=== PATIENT | male | born 1970 | race Caucasian/White ===

== ENCOUNTER 2018-09-18 16:03 | Inpatient (IN) | payer BC ==
[2018-09-18 17:29] VITALS: BMI 26.1
--- NOTE | 2018-09-18 18:10 | HP ---
CIWA Score Nausea/Vomitin-No Nausea/No Vomiting Muscle Tremors: 1-None Visible, but [place] Anxiety: 4-Mod. Anxious/Guarded Agitation: 4-Moderately Restless Paroxysmal Sweats: No Perspiration Orientation: 0-Oriented Tacttile Disturbances: 0-None Auditory Disturbances: 0-None Visual Disturbances: 0-None Headache: 0-None Present CIWA-Ar Total Score: 9 - Admission Criteria [facility]ASAS Guidelines: Admission for Medically Managed Detox: Requires at least one of the followin. CIWA greater than 12 2. Seizures within the past 24 hours 3. Delirium tremens within the past 24 hours 4. Hallucinations within the past 24 hours 5. Acute intervention needed for co occurring medical disorder 6. Acute intervention needed for co occurring psychiatric disorder 7. Severe withdrawal that cannot be handled at a lower level of care (continued vomiting, continued diarrhea, abnormal vital signs) requiring intravenous medication and/or fluids 8. Admission ROS [facility] Chief Complaint: SEEKING DETOX FOR C/O WORSENING WITHDRAWAL SX'S./ ALCOHOL Allergies/Adverse Reactions: Allergies Allergy/AdvReac Type Severity Reaction Status Date / Time No Known Allergies Allergy Verified 09/18/18 18:10 History of Present Illness: 47 Y.O. MALE WITH HX/O ALCOHOLISM HERE FOR DETOX. CLIENT WAS REFERRED BY A FRIEND. PRESENTS WITH C/O WITHDRAWAL SX'S, CIWA 6. B/P 157/105, HR 75. CLIENT DENIES HX/O HTN. HE ALSO REPORTS THIS IS HIS FIRST TIME IN DRUG TXMENT. HE REPORTS THE LONGEST HE CAN GO W/O ALCOHOL IS ABOUT 12 HOURS. HE WAKES UP NEEDING A DRINK DUE TO TREMORS AND SOME WITHDRAWAL SX'S. LONGEST CLEAN TIME 5 YEARS DENIES ANY SIGNIFICANT PERIOD OF CLEAN TIME IN THE PAST 3 YEARS. DENIES HX/O SEIZURES, AVH, SI/HI. PMHX- HX/O TB W/ TXMENT PSYCH- DENIES MEDS- DENIES Exam Limitations: Language Barrier (YAKUT SPEAKING BUT CAN MAKE NEEDS KNOWN IN [place]) - Ebola screening Have you traveled outside of the country in the last 21 days: No Have you had contact with anyone from an Ebola affected area: No Have you been sick,other than usual withdrawal symptoms: No Do you have a fever: No - Review of Systems Constitutional: Loss of Appetite EENT: reports: No Symptoms Reported Respiratory: reports: No Symptoms reported Cardiac: reports: No Symptoms Reported GI: reports: Diarrhea, Poor Appetite : reports: No Symptoms Reported Musculoskeletal: reports: No Symptoms Reported Integumentary: reports: No Symptoms Reported Neuro: reports: Tremors Endocrine: reports: No Symptoms Reported Hematology: reports: No Symptoms Reported Psychiatric: reports: Anxious Other Systems: Reviewed and Negative Patient History - Patient Medical History Hx Anemia: No Hx Asthma: No Hx Chronic Obstructive Pulmonary Disease (COPD): No Hx Cancer: No Hx Cardiac Disorders: No Hx Congestive Heart Failure: No Hx Hypertension: No Hx Hypercholesterolemia: No Hx Pacemaker: No HX Cerebrovascular Accident: No Hx Seizures: No Hx Dementia: No Hx Diabetes: No Hx Gastrointestinal Disorders: No Hx Liver Disease: No Hx Genitourinary Disorders: No Hx Sexually Transmitted Disorders: No Hx Renal Disease (ESRD): No Hx Thyroid Disease: No Hx Human Immunodeficiency Virus (HIV): No Hx Hepatitis C: No Hx Depression: No Hx Suicide Attempt: No Hx Bipolar Disorder: No Hx Schizophrenia: No Other Medical History: HX/O TB - Patient Surgical History Past Surgical History: Yes Hx Orthopedic Surgery: Yes (R ARM FX REPAIR WITH HARDWARE) Anesthesia Reaction: No - PPD History Previous Implant?: Yes Documented Results: Positive w/o proof Implanted On Prior [facility] Admission?: No PPD to be Administered?: No - Smoking Cessation Smoking history: Never smoked Initiated information on smoking cessation: No - Substance & Tx. History Hx Alcohol Use: Yes Hx Substance Use: Yes Substance Use Type: Alcohol Hx Substance Use Treatment: No - Substances Abused BEER Route: Oral Frequency: Daily Amount used: 5-24 OZ Age of first use: 15 Date of Last Use: 09/17/18 Family Disease History - Family Disease History Family Disease History: Heart Disease: Father (ALCOHOLISM), Other: Father Admission Physical Exam [facility] - Vital Signs Vital Signs: Vital Signs - 24 hr 09/18/18 17:27 Temperature 96.7 F L Pulse Rate 72 Respiratory 18 Rate Blood Pressure 157/105 H - Physical General Appearance: Yes: Tremorous (FELT), Anxious HEENTM: Yes: EOMI, Normocephalic, Normal Voice, THADDEUS, Pharynx Normal Respiratory: Yes: Chest Non-Tender, Lungs Clear, Normal Breath Sounds, No Respiratory Distress, No Accessory Muscle Use Neck: Yes: No masses,lesions,Nodules, Supple, Trachea in good position Breast: Yes: Breast Exam Deferred Cardiology: Yes: Regular Rhythm, Regular Rate, S1, S2 Abdominal: Yes: Non Tender, Soft, Increased Bowel Sounds Genitourinary: Yes: Within Normal Limits (NO C/O) Back: Yes: Normal Inspection Musculoskeletal: Yes: full range of Motion, Gait Steady Extremities: Yes: Normal Range of Motion, Non-Tender, Tremors (FELT) Neurological: Yes: Fully Oriented, Alert, Motor Strength 5/5 Integumentary: Yes: Dry, Warm Lymphatic: Yes: Within Normal Limits - Diagnostic (1) Alcohol dependence with uncomplicated withdrawal Current Visit: Yes Status: Acute (2) History of positive PPD Current Visit: Yes Status: Chronic (3) At risk for dehydration due to poor fluid intake Current Visit: Yes Status: Acute Cleared for Admission [facility] - Detox or Rehab [facility] Level of Care: Medically Managed Detox Regimen/Protocol: Librium Claeared for Rehab Admission: No [facility] Breath Alcohol Content Breath Alcohol Content: 0 Urine Drug Screen - Results Drug Screen Negative: Yes
[2018-09-18] MEDS ORDERED: P-EPHED 60MG/TRIPROLIDI 2.5MG TABLET PO PRN (18:23)
[2018-09-18] MEDS ORDERED: LOPERAMIDE HCL 2 MG CAPSULE PO PRN (18:23)
[2018-09-18] MEDS ORDERED: hydrOXYzine PAMOATE 50 MG CAPSULE (FP) PO PRN (18:23)
[2018-09-18] MEDS ORDERED: MAG HYDROX/AL HYDROX/SIMETH 30 ML UNIT-DOSE CUP PO PRN (18:23)
[2018-09-18] MEDS ORDERED: chlordiazePOXIDE HCL 25 MG CAPSULE PO PRN (18:23)
[2018-09-18] MEDS ORDERED: MENTHOL/PHENOL 1 EACH UD MM PRN (18:23)
[2018-09-18] MEDS ORDERED: MAGNESIUM CITRATE 300 ML BOTTLE PO PRN (18:23)
[2018-09-18] MEDS ORDERED: guaiFENesin/D-METHORPHAN HB 10 ML UNIT-DOSE CUPS PO PRN (18:23)
[2018-09-18] MEDS ORDERED: MAGNESIUM HYDROX 2400MG/30ML ORAL SUSPENSION 30 ML CUP PO PRN (18:23)
[2018-09-18] MEDS ORDERED: IBUPROFEN 400 MG TABLET (FP) PO PRN (18:23)
[2018-09-18] MEDS ORDERED: ACETAMINOPHEN 325 MG TABLET (FP) PO PRN (18:23)
[2018-09-18] MEDS: THIAMINE HCL 100 MG TABLET (FP) PO SCH (21:34)
[2018-09-18] MEDS: chlordiazePOXIDE HCL 25 MG CAPSULE PO SCH (22:20)
[2018-09-18 23:19] LABS: URINE APPEARANCE CLEAR; URINE BILIRUBIN NEGATIVE (<2.0 mg/dL); URINE COLOR LTYELLOW; URINE GLUCOSE (UA) NEGATIVE (NEGATIVE); URINE KETONE NEGATIVE (NEGATIVE); URINE LEUK ESTERASE NEGATIVE (NEGATIVE); URINE NITRITE NEGATIVE (NEGATIVE); URINE PROTEIN NEGATIVE (NEGATIVE); URINE UROBILINOGEN NEGATIVE mg/dL (0.2-1.0)
[2018-09-19] MEDS: chlordiazePOXIDE HCL 25 MG CAPSULE PO SCH ×4 (05:32→22:05)
[2018-09-19] MEDS: PRENATAL VITAMINS W/ FOLIC ACID TABLET (FP) PO SCH (10:21)
[2018-09-19 10:56] LABS: ALBUMIN 3.2 g/dl (3.4-5.0); ALK PHOS 50 U/L (45-117); ANION GAP 7 MMOL/L (8-16); BILIRUBIN,TOTAL 0.6 mg/dL (0.2-1); BLOOD UREA NITROGEN 13 mg/dL (7-18); CALCIUM 8.1 mg/dL (8.5-10.1); CHLORIDE 105 mmol/L (98-107); CO2 27 mmol/L (21-32); CREATININE 0.8 mg/dL (0.55-1.3); GLUCOSE,RANDOM 108 mg/dL (74-106); POTASSIUM 3.9 mmol/L (3.5-5.1); SGOT/AST 22 U/L (15-37); SGPT/ALT 33 U/L (13-61); SODIUM 139 mmol/L (136-145); TOT PROT 6.6 g/dl (6.4-8.2)
[2018-09-19 10:59] LABS: HEMOGLOBIN 13.4 GM/dL (11.7-16.9); MCH 30.7 pg (25.7-33.7); MCHC 32.8 g/dl (32.0-35.9); MEAN CELL VOLUME 93.8 fl (80-96); MEAN PLT VOLUME 8.1 fl (7.5-11.1); PLATELET COUNT 253 K/MM3 (134-434); RBC 4.37 M/mm3 (4.00-5.60); RDW 13.5 % (11.9-15.9); WHITE BLOOD COUNT 5.2 K/mm3 (4.0-10.0)
--- NOTE | 2018-09-19 11:40 | PN ---
S CIWA - CIWA Score Nausea/Vomitin-No Nausea/No Vomiting Muscle Tremors: 4-Moderate,w/Arms Extend Anxiety: 4-Mod. Anxious/Guarded Agitation: 4-Moderately Restless Paroxysmal Sweats: 1-Minimal Palms Moist Orientation: 0-Oriented Tacttile Disturbances: 0-None Auditory Disturbances: 0-None Visual Disturbances: 0-None Headache: 0-None Present (DIARRHEA) CIWA-Ar Total Score: 13 BHS Progress Note (SOAP) Subjective: PT C/O DIARRHEA, HEADACHE, ANXIETY,SWEATS. Objective: 09/19/18 11:42 Vital Signs 09/19/18 09/19/18 09/19/18 06:26 06:28 09:41 Temperature 96.8 F L 97.8 F Pulse Rate 63 70 Respiratory 18 18 18 Rate Blood Pressure 119/71 119/79 Laboratory Tests 09/18/18 09/19/18 09/19/18 23:00 07:50 07:50 WBC 5.2 RBC 4.37 Hgb 13.4 Hct 41.0 MCV 93.8 MCH 30.7 MCHC 32.8 RDW 13.5 Plt Count 253 MPV 8.1 Sodium 139 Potassium 3.9 Chloride 105 Carbon Dioxide 27 Anion Gap 7 L BUN 13 Creatinine 0.8 Creat Clearance w eGFR > 60 Random Glucose 108 H Calcium 8.1 L Total Bilirubin 0.6 AST 22 ALT 33 Alkaline Phosphatase 50 Total Protein 6.6 Albumin 3.2 L Urine Color Ltyellow Urine Appearance Clear Urine pH 7.0 Ur Specific [place] 1.020 Urine Protein Negative Urine Glucose (UA) Negative Urine Ketones Negative Urine Blood Negative Urine Nitrite Negative Urine Bilirubin Negative Urine Urobilinogen Negative Ur Leukocyte Esterase Negative LABS NOTED Assessment: 09/19/18 11:43 WITHDRAWAL SX Plan: CONTINUE DETOX IMODIUM PRN TYLENOL DIRECTED
[2018-09-19] MEDS: MELATONIN 5 MG TABLETS PO PRN (22:05)
[2018-09-19] MEDS: THIAMINE HCL 100 MG TABLET (FP) PO SCH (22:05)
[2018-09-20] MEDS: chlordiazePOXIDE HCL 25 MG CAPSULE PO SCH ×3 (05:27→17:15)
[2018-09-20] MEDS: PRENATAL VITAMINS W/ FOLIC ACID TABLET (FP) PO SCH (10:12)
--- NOTE | 2018-09-20 14:25 | PN ---
S CIWA - CIWA Score Nausea/Vomitin Muscle Tremors: 3 Anxiety: 3 Agitation: 3 Paroxysmal Sweats: 3 Orientation: 0-Oriented Tacttile Disturbances: 0-None Auditory Disturbances: 0-None Visual Disturbances: 0-None Headache: 0-None Present CIWA-Ar Total Score: 14 BHS Progress Note (SOAP) Subjective: Tremor, sweating Objective: 09/20/18 14:24 Last Vital Signs Temp Pulse Resp BP Pulse Ox 98.1 F 81 18 123/75 09/20/18 13:19 09/20/18 13:19 09/20/18 13:19 09/20/18 13:19 Laboratory Tests 09/18/18 09/19/18 09/19/18 23:00 07:50 07:50 WBC 5.2 RBC 4.37 Hgb 13.4 Hct 41.0 MCV 93.8 MCH 30.7 MCHC 32.8 RDW 13.5 Plt Count 253 MPV 8.1 Sodium 139 Potassium 3.9 Chloride 105 Carbon Dioxide 27 Anion Gap 7 L BUN 13 Creatinine 0.8 Creat Clearance w eGFR > 60 Random Glucose 108 H Calcium 8.1 L Total Bilirubin 0.6 AST 22 ALT 33 Alkaline Phosphatase 50 Total Protein 6.6 Albumin 3.2 L Urine Color Ltyellow Urine Appearance Clear Urine pH 7.0 Ur Specific [place] 1.020 Urine Protein Negative Urine Glucose (UA) Negative Urine Ketones Negative Urine Blood Negative Urine Nitrite Negative Urine Bilirubin Negative Urine Urobilinogen Negative Ur Leukocyte Esterase Negative RPR Titer 09/19/18 07:50 WBC RBC Hgb Hct MCV MCH MCHC RDW Plt Count MPV Sodium Potassium Chloride Carbon Dioxide Anion Gap BUN Creatinine Creat Clearance w eGFR Random Glucose Calcium Total Bilirubin AST ALT Alkaline Phosphatase Total Protein Albumin Urine Color Urine Appearance Urine pH Ur Specific [place] Urine Protein Urine Glucose (UA) Urine Ketones Urine Blood Urine Nitrite Urine Bilirubin Urine Urobilinogen Ur Leukocyte Esterase RPR Titer Nonreactive Labs reviewed Assessment: 09/20/18 14:25 Withdrawal symptoms Plan: Continue detox Encouraged PO water intake
[2018-09-20] MEDS: chlordiazePOXIDE 5 MG CAPSULE PO SCH (22:19)
[2018-09-20] MEDS: THIAMINE HCL 100 MG TABLET (FP) PO SCH (22:19)
[2018-09-21] MEDS: chlordiazePOXIDE 5 MG CAPSULE PO SCH ×3 (05:35→17:21)
[2018-09-21] MEDS: PRENATAL VITAMINS W/ FOLIC ACID TABLET (FP) PO SCH (10:38)
--- NOTE | 2018-09-21 13:14 | PN ---
BHS Progress Note (SOAP) Subjective: Offers no new complaints states he feels better than when he came in Requesting discharge early in the a.m Objective: 09/21/18 13:10 In day room, sitting comfortably Not in any distress Vital Signs Temperature 97.6 F 09/21/18 10:35 Pulse Rate 101 H 09/21/18 10:35 Respiratory Rate 18 09/21/18 10:35 Blood Pressure 123/94 09/21/18 10:35 O2 Sat by Pulse Oximetry (%) Assessment: 09/21/18 13:12 Detox going on well Plan: Continue detox For discharge in a.m
--- NOTE | 2018-09-21 13:24 | DS ---
[facility] Detox Discharge Summary Admission Date: 09/18/18 Discharge Date: 09/21/18 - Physical Exam Results Vital Signs: Vital Signs Temperature 97.6 F 09/21/18 10:35 Pulse Rate 101 H 09/21/18 10:35 Respiratory Rate 18 09/21/18 10:35 Blood Pressure 123/94 09/21/18 10:35 O2 Sat by Pulse Oximetry (%) - Medication Discharge Medications: Ambulatory Orders NK [No Known Home Medication] 09/18/18
[2018-09-21] MEDS: chlordiazePOXIDE HCL 10 MG CAPSULE PO SCH (22:28)
[2018-09-21] MEDS: THIAMINE HCL 100 MG TABLET (FP) PO SCH (22:28)
[2018-09-21] MEDS: MELATONIN 5 MG TABLETS PO PRN (22:28)
[2018-09-22] MEDS: chlordiazePOXIDE HCL 10 MG CAPSULE PO SCH (05:25)
[2018-09-22 06:19] VITALS: BP 126/72; PULSE 65; TEMP 97.2
--- NOTE | 2018-09-22 13:17 | DS ---
[facility] Detox Discharge Summary Admission Date: 09/18/18 Discharge Date: 09/22/18 - History Present History: Alcohol Dependence Pertinent Past History: Pt admitted for withdrawal from alcohol use- pt did well with the detox protocol. PT refused rehab services-states he has to go to work. - Physical Exam Results Vital Signs: Vital Signs Temperature 97.2 F L 09/22/18 06:18 Pulse Rate 65 09/22/18 06:18 Respiratory Rate 18 09/22/18 06:18 Blood Pressure 126/72 09/22/18 06:18 O2 Sat by Pulse Oximetry (%) - Treatment Hospital Course: Detox Protocol Followed, Detoxed Safely, Responded well, Discharged Condition Good - Medication Discharge Medications: Ambulatory Orders NK [No Known Home Medication] 09/18/18 - AMA Did Patient Leave Against Medical Advice: No
== END 2018-09-22 06:37 | disposition home or self-care (01) | DRG 897 ==
LOC: YASAS 16:03 → Y3N 20:42
PROC: HZ2ZZZZ Detoxification Services for Substance Abuse Treatment (ICD-10-PCS; principal; 2018-09-18)
DX: F10.230 Alcohol dependence with withdrawal, uncomplicated (principal); R76.11 Nonspecific reaction to tuberculin skin test without active tuberculosis; Z91.89 Other specified personal risk factors, not elsewhere classified
CPT/HCPCS: 36415; 80053; 81003; 85027; 86593